=== PATIENT | female | born 1985 | race African-American/Black ===

== ENCOUNTER 2017-10-13 23:05 | Emergency (ER) | payer MEDICAID ==
[~2017-10-13] VITALS: Ht 157.5 cm; Wt 59.9 kg
[2017-10-13 23:13] VITALS: BP_SYST 120
[2017-10-13] MEDS ORDERED: MORPHINE 4 MG/ML INJ. SYRINGE IM ONE (23:45)
[2017-10-13] MEDS ORDERED: ONDANSETRON HCL 4 MG/2 ML VIAL IVP ONE (23:45)
[2017-10-14 00:30] LABS: BASOPHILS % (AUTO) 0.6 % (0.0-2.0); CREATININE 0.64 mg/dL (0.55-1.30); EOSINOPHILS # (AUTO) 0.2 K/uL (0.0-0.4); EOSINOPHILS % (AUTO) 2.5 % (0.0-4.0); HEMOGLOBIN 9.8 g/dL (12.0-16.0); LYMPHOCYTES # (AUTO) 1.9 K/uL (1.0-5.5); LYMPHOCYTES % (AUTO) 29.3 % (20.5-51.5); MEAN CORPUSCULAR HEMOGLOBIN 28 pg (27-31); MEAN CORPUSCULAR HGB CONC 34 % (32-36); MEAN CORPUSCULAR VOLUME 84 fL (79.0-98.0); MONOCYTES # (AUTO) 0.4 K/uL (0.0-1.0); MONOCYTES % (AUTO) 5.8 % (1.7-9.3); NEUTROPHILS # (AUTO) 3.9 K/uL (1.8-7.7); PLATELET COUNT (AUTO) 288 K/uL (130-430); POTASSIUM 3.7 mmol/L (3.5-5.1); RED BLOOD CELL COUNT(AUTO) 3.47 MIL/uL (4.2-6.2); RED CELL DISTRIBUTION WIDTH 18.5 % (9.0-15.0); WHITE BLOOD COUNT (AUTO) 6.4 K/uL (4.8-10.8)
[2017-10-14 00:31] LABS: PROTHROMBIN TIME 9.9 SECS (9.5-12.5)
[2017-10-14 00:34] LABS: TOTAL BILIRUBIN 0.2 mg/dL (0.0-1.0)
[2017-10-14 00:55] LABS: NEUTROPHILS % (AUTO) 61.8 % (40.0-70.0)
[2017-10-14 01:25] LABS: UR TRICYCLIC ANTIDEPRESSANTS POSITIVE (NEG <=300)
[2017-10-14 01:26] LABS: BARBITURATE, URINE NEGATIVE (NEG <=200); BENZODIAZEPINE, URINE NEGATIVE (NEG <=150); CANNABINOID, URINE NEGATIVE (NEG <=50); COCAINE, URINE NEGATIVE (NEG <=150); METHAMPHETAMINES SCREEN,URINE NEGATIVE (NEG <=500); OPIATE, URINE POSITIVE (NEG <=100); PHENCYCLIDINE SCREEN,URINE NEGATIVE (NEG <=25); URINE AMPHETAMINE NEGATIVE (NEG <=500); URINE METHADONE NEGATIVE (NEG <=200); URINE OXYCODONE SCREEN NEGATIVE (NEG <=100); URINE PROPOXYPHENE SCREEN NEGATIVE (NEG <=300)
[2017-10-14 01:29] LABS: BILIRUBIN,URINE NEGATIVE (NEGATIVE); BLOOD, URINE NEGATIVE (NEGATIVE); CLARITY/URINE SL HAZY (CLEAR); COLOR,URINE YELLOW (YELLOW); GLUCOSE,URINE NEGATIVE (NEGATIVE); KETONES,URINE 1+ (NEGATIVE); LEUKOCYTE ESTERASE ,URINE NEGATIVE (NEGATIVE); NITRITE, URINE NEGATIVE (NEGATIVE); PH,URINE 6.5 (5.0-8.0); PROTEIN URINE NEGATIVE (NEGATIVE); UROBILINOGEN,URINE 0.2 (0.2-1.0)
[2017-10-14] MEDS ORDERED: MORPHINE SULFATE 10 MG/ML VIAL IM ONE (01:45)
[2017-10-14 02:18] VITALS: BP_SYST 125
== END 2017-10-14 02:18 | disposition home or self-care (01) ==
LOC: SED 23:05
DX: D57.1 Sickle-cell disease without crisis (principal); R03.0 Elevated blood-pressure reading, without diagnosis of hypertension; J45.909 Unspecified asthma, uncomplicated; Z88.6 Allergy status to analgesic agent; Z88.8 Allergy status to other drugs, medicaments and biological substances
CPT/HCPCS: 36415; 71045; 80053; 80307; 81003; 81025; 85025; 85044; 85610; 85730; 87086; 96372; 99285; J2270 ×2; J2405